=== PATIENT | female | born 1955 | race Caucasian/White ===

== ENCOUNTER → 2018-02-06 | Outpatient (CLI) | payer OTHER | LOC: FIMAGING 11:15 | DX: N64.4 Mastodynia (principal); E78.2 Mixed hyperlipidemia; I10 Essential (primary) hypertension; E03.9 Hypothyroidism, unspecified; S33.9XXA Sprain of unspecified parts of lumbar spine and pelvis, initial encounter; E66.9 Obesity, unspecified; L57.0 Actinic keratosis ==